=== PATIENT | female | born 1995 ===

== ENCOUNTER 2021-09-05 11:01 | Outpatient (CLI) | payer OTHER | END 2021-09-05 12:10 | disposition home or self-care (01) | LOC: PRENATAL 11:01 | PROVIDERS: ATTEND Obstetrics & Gynecology Maternal & Fetal Medicine | DX: O35.3XX0 Maternal care for (suspected) damage to fetus from viral disease in mother, not applicable or unspecified (principal); O35.0XX0 Maternal care for (suspected) central nervous system malformation in fetus, not applicable or unspecified; O36.5990 Maternal care for other known or suspected poor fetal growth, unspecified trimester, not applicable or unspecified ==

== ENCOUNTER 2021-09-26 10:27 | Outpatient (CLI) | payer OTHER | END 2021-09-26 11:25 | disposition home or self-care (01) | LOC: PRENATAL 10:27 | PROVIDERS: ATTEND Obstetrics & Gynecology Maternal & Fetal Medicine | DX: O35.0XX0 Maternal care for (suspected) central nervous system malformation in fetus, not applicable or unspecified (principal); O35.3XX0 Maternal care for (suspected) damage to fetus from viral disease in mother, not applicable or unspecified; O34.219 Maternal care for unspecified type scar from previous cesarean delivery; O41.00X0 Oligohydramnios, unspecified trimester, not applicable or unspecified; Z3A.33 33 weeks gestation of pregnancy ==

== ENCOUNTER 2021-10-14 09:01 | Outpatient (CLI) | payer OTHER ==
[2021-10-14] MEDS ORDERED: PRENATAL TABLE1 EAC3 (10:50)
== END 2021-10-14 17:27 | disposition home or self-care (01) ==
LOC: OBS/DEL 09:01
PROVIDERS: ATTEND Obstetrics & Gynecology
DX: O41.03X0 Oligohydramnios, third trimester, not applicable or unspecified (principal); Z3A.36 36 weeks gestation of pregnancy; Z20.822 Contact with and (suspected) exposure to COVID-19

== ENCOUNTER 2021-10-22 18:44 | Outpatient (CLI) | payer OTHER ==
[~2021-10-22 18:44] MED LIST: PRENATAL TABLE1 EAC3
== END 2021-10-23 17:12 | disposition home or self-care (01) ==
LOC: OBS/DEL 18:44
PROVIDERS: ATTEND Obstetrics & Gynecology
DX: O36.8130 Decreased fetal movements, third trimester, not applicable or unspecified (principal); Z3A.37 37 weeks gestation of pregnancy; Z20.822 Contact with and (suspected) exposure to COVID-19

== ENCOUNTER 2021-10-25 06:53 | Inpatient (IN) | payer OTHER ==
[~2021-10-25] VITALS: Ht 152.4 cm; Wt 2.3 kg
== END 2021-10-28 17:13 | disposition home or self-care (01) | DRG 788 ==
LOC: LDR 06:53 → OB/GYN 16:23
PROVIDERS: ADMIT Obstetrics & Gynecology; ATTEND Obstetrics & Gynecology
PROC: 4A1HXCZ Monitoring of Products of Conception, Cardiac Rate, External Approach (ICD-10-PCS; 2021-10-25)
PROC: 10D00Z1 Extraction of Products of Conception, Low, Open Approach (ICD-10-PCS; principal; 2021-10-25 15:30)
DX: O36.5930 Maternal care for other known or suspected poor fetal growth, third trimester, not applicable or unspecified (principal); O34.211 Maternal care for low transverse scar from previous cesarean delivery; Z20.822 Contact with and (suspected) exposure to COVID-19; Z3A.37 37 weeks gestation of pregnancy; Z37.0 Single live birth